=== PATIENT | male | born 1965 | race Caucasian/White ===

== ENCOUNTER 2017-03-27 12:37 | Emergency (ER) | payer MEDICAID ==
[~2017-03-27] VITALS: Ht 185.4 cm; Wt 74.7 kg
[2017-03-27 14:47] LABS: HEMATOCRIT 42.2 % (39.2-51.8); WHITE BLOOD COUNT 9.8 x10^3/uL (3.4-10)
[2017-03-27 14:54] LABS: BLOOD UREA NITROGEN 8 mg/dL (7-18)
[2017-03-27 14:59] LABS: ASPARTATE AMINO TRANSFERASE 19 U/L (15-37)
[2017-03-27 15:01] LABS: IS PT STATUS REG ER OR PRE ER? YES
[2017-03-27 16:03] VITALS: BP 112/74
== END 2017-03-27 16:27 | disposition home or self-care (01) ==
LOC: ED 16:21
DX: J20.9 Acute bronchitis, unspecified (principal); B96.89 Other specified bacterial agents as the cause of diseases classified elsewhere; K21.9 Gastro-esophageal reflux disease without esophagitis; F17.200 Nicotine dependence, unspecified, uncomplicated
CPT/HCPCS: 36415; 71020; 80053; 84484; 85025; 93005; 93970